=== PATIENT | female | born 1975 | race Caucasian/White ===

== ENCOUNTER 2019-08-18 17:00 | Emergency (ER) | payer MEDICAID ==
[~2019-08-18] VITALS: Ht 152.4 cm; Wt 63.5 kg
[2019-08-18 17:07] VITALS: BP 112/78
--- NOTE | 2019-08-18 17:48 | NUR ---
44 Y/O FEMALE C/O COUGH AND CONGESTION X5 DAYS. PT STATES SHE WAS SEEN AT URGENT CARE AND GIVEN LEVOFLOXACIN. PT STATES PRODUCTIVE COUGH W/ WHITE SPUTUM. DENIES PAIN. STATES 1 EPISODE OF VOMITING TODAY. DENIES NAUSEA AND DIARRHEA. LMP 08/08/2019. RR EVEN AND UNLABORED. VSS. MEDHX: DENIES ALLERGIES: PENICILLIN
--- NOTE | 2019-08-18 19:02 | NUR ---
PT AMBULATED TO RESTROOM WITH STEADY GAIT.
--- NOTE | 2019-08-18 19:30 | NUR ---
BEATRIZ SANCHEZ AT CHAIR.
[2019-08-18 19:42] VITALS: BP 112/78
--- NOTE | 2019-08-18 19:42 | NUR ---
Patient discharged with v/s stable. Written and verbal after care instructions given and explained. Patient alert, oriented and verbalized understanding of instructions. Ambulatory with steady gait. All questions addressed prior to discharge. ID band removed. Patient advised to follow up with PMD. Rx of ZULMA PAEZ given. Patient educated on indication of medication including possible reaction and side effects. Opportunity to ask questions provided and answered.
== END 2019-08-18 19:42 | disposition home or self-care (01) ==
LOC: MED 17:00
DX: B34.9 Viral infection, unspecified (principal); Z88.0 Allergy status to penicillin
CPT/HCPCS: 71045; 99283; Q0092